=== PATIENT | female | born 1965 | race Caucasian/White ===

== ENCOUNTER 2017-07-21 16:17 | Emergency (ER) | payer MEDICAID ==
[~2017-07-21] VITALS: Ht 162.6 cm; Wt 110.8 kg
[~2017-07-21 16:17] MED LIST: ALPR1TAB2 PO; DULO20EC PO; ENAL20TA19 PO; SIMV5TAB6 PO; TIOT18CA2 IH; [UNRECOGNIZED DRUG - CODE] PO; [UNRECOGNIZED DRUG - REMARK]
[2017-07-21 16:50] VITALS: BP 152/84
--- NOTE | 2017-07-21 16:55 | NUR ---
Patient ambulated to bed 4. RN evaluating patient at bedside.
--- NOTE | 2017-07-21 16:55 | NUR ---
51 F BIB SELF WITH C/O 10/10 "SHARP" POSTERIOR NECK PAIN RADIATING TO POSTERIOR HEAD X 1 YEAR WORSING THE PAST MONTH; PT DENIES ANY RECENT TRAUMA OR FALLS; PT ALSO REPORTS NAUSEA; PT IS AOX4 WITH STEADY GAIT; RR ARE EVEN AND UNLABORED; VSS; PATIENT POSITIONED FOR COMFORT; HOB ELEVATED; BED DOWN. ER MD MADE AWARE OF PT STATUS. ALL NEEDS MET AT THIS TIME. WILL CONTINUE TO MONITOR.
--- NOTE | 2017-07-21 16:59 | NUR ---
Dr. Freed evaluating patient at bedside.
[2017-07-21] MEDS ORDERED: DIAZEPAM 5 MG TAB PO ONE (17:15)
[2017-07-21] MEDS ORDERED: KETOROLAC 30 MG/ML VIAL IM ONE (17:15)
--- NOTE | 2017-07-21 18:57 | NUR ---
Patient discharged with v/s stable. Written and verbal after care instructions given and explained. Patient alert, oriented and verbalized understanding of instructions. Ambulatory with to car. All questions addressed prior to discharge. ID band removed. Patient advised to follow up with PMD. Rx of Lidoderm 5% Transdermal Patch and Valium given. Patient educated on indication of medication including possible reaction and side effects. Opportunity to ask questions provided and answered.
[2017-07-21 18:58] VITALS: BP 120/70
== END 2017-07-21 18:57 | disposition home or self-care (01) ==
LOC: MED 16:17
DX: M62.838 Other muscle spasm (principal); J44.9 Chronic obstructive pulmonary disease, unspecified; I10 Essential (primary) hypertension; N19 Unspecified kidney failure; Z79.51 Long term (current) use of inhaled steroids
CPT/HCPCS: 72125; 96372; 99284; J1885

== ENCOUNTER 2018-09-30 11:51 | Emergency (ER) | payer MEDICAID ==
[~2018-09-30] VITALS: Ht 162.6 cm; Wt 129.3 kg
[2018-09-30 11:56] VITALS: BP 155/96
--- NOTE | 2018-09-30 12:03 | NUR ---
PT AMBULATES TO BED 8
--- NOTE | 2018-09-30 12:05 | NUR ---
BIB SELF C/O COLD SYMPTOMS FOR 2 DAYS. INCLUDING COUGH HEADACHE AND BODY ACHES. ENIES N/V/D; SKIN IS PINK/WARM/DRY; AAOX4 WITH EVEN AND STEADY GAIT; HR EVEN AND REGULAR; PT DENIES ANY FEVER, CP, OR SOB AT THIS TIME; PATIENT STATES PAIN OF 7/10 AT THIS TIME; VSS; PATIENT POSITIONED FOR COMFORT; HOB ELEVATED; BEDRAILS UP X2; BED DOWN. ER MD MADE AWARE OF PT STATUS.
[2018-09-30] MEDS ORDERED: ALBUTEROL SULFATE/IPRATROPIU 3 ML SOL IH ONE (12:25)
--- NOTE | 2018-09-30 12:30 | NUR ---
RT AT BEDSIDE.
[2018-09-30 13:45] VITALS: BP 125/85
--- NOTE | 2018-09-30 13:45 | NUR ---
Patient discharged with v/s stable. Written and verbal after care instructions given and explained. Patient alert, oriented and verbalized understanding of instructions. Ambulatory with steady gait. All questions addressed prior to discharge. ID band removed. Patient advised to follow up with PMD. Rx of PREDNISONE and ATROVENT given. Patient educated on indication of medication including possible reaction and side effects. Opportunity to ask questions provided and answered.
== END 2018-09-30 13:45 | disposition home or self-care (01) ==
LOC: MED 11:51
DX: J44.1 Chronic obstructive pulmonary disease with (acute) exacerbation (principal); I10 Essential (primary) hypertension; F41.9 Anxiety disorder, unspecified; F17.210 Nicotine dependence, cigarettes, uncomplicated; Z79.899 Other long term (current) drug therapy
CPT/HCPCS: 71045; 94640; 99283; J7620

== ENCOUNTER 2019-01-19 10:46 | Emergency (ER) | payer MEDICAID ==
[~2019-01-19] VITALS: Ht 162.6 cm; Wt 108.9 kg
[~2019-01-19 10:46] MED LIST changes: -ENAL20TA19 PO; +ENAL20TA99 PO; +SIMV5TAB56 PO; -SIMV5TAB6 PO
[2019-01-19 10:49] VITALS: BP 115/86
--- NOTE | 2019-01-19 10:55 | NUR ---
Patient ambulated to bed 5 with family. RN evaluating patient at bedside.
--- NOTE | 2019-01-19 10:55 | NUR ---
BIB SELF. AAO X4. C/O RIGHT HAND, 3RD, 4TH, 5TH FINGER NUMBNESS THIS MORNING. DENIES TRAUMA OR INJURY. CAP REFILL < 3 SECS. ABLE TO FEEL AND MOVE FINGERS. PERRLA, BRISK 4 MM. EQUAL JANIS UPPER AND LOWER EXTREMITY STRENGTH. HOB UP. ON LOW BED POSITION, LOCKED. BED SIDE RAILS UP X1. ER MADE AWARE OF PT STATUS .
--- NOTE | 2019-01-19 12:16 | NUR ---
Dr. Bass evaluating patient at bedside.
--- NOTE | 2019-01-19 12:36 | NUR ---
PT SLEEPING AT THIS TIME. EASILY AROUSABLE BY NAME. PT'S FRIEND AT BEDSIDE.
--- NOTE | 2019-01-19 12:51 | NUR ---
Dr. Bass re-evaluating patient at bedside.
[2019-01-19] MEDS ORDERED: traMADol 50 MG TAB PO ONE (13:10)
[2019-01-19] MEDS ORDERED: methylPREDNISolone SS 125 MG in WATER STERILE 2 ML IM ONE (13:10)
[2019-01-19] MEDS ORDERED: MORPHINE SULFATE 4 MG/ML SYR IM ONE (13:25)
--- NOTE | 2019-01-19 14:13 | NUR ---
Patient discharged with v/s stable. Written and verbal after care instructions given and explained. Patient alert, oriented and verbalized understanding of instructions. Ambulatory with steady gait. All questions addressed prior to discharge. ID band removed. Patient advised to follow up with PMD. Rx of Tramadol Hydrochloride given. Patient educated on indication of medication including possible reaction and side effects. Opportunity to ask questions provided and answered.
[2019-01-19 14:15] VITALS: BP 134/75
== END 2019-01-19 14:13 | disposition home or self-care (01) ==
LOC: MED 10:46
DX: M54.12 Radiculopathy, cervical region (principal); J45.909 Unspecified asthma, uncomplicated; J44.9 Chronic obstructive pulmonary disease, unspecified; I10 Essential (primary) hypertension; Z86.73 Personal history of transient ischemic attack (TIA), and cerebral infarction without residual deficits; Z79.899 Other long term (current) drug therapy
CPT/HCPCS: 96372; 99283; J2270; J2930

== ENCOUNTER 2019-10-18 11:03 | Emergency (ER) | payer MEDICAID ==
[~2019-10-18] VITALS: Ht 160 cm; Wt 116.6 kg
[2019-10-18 11:11] VITALS: BP 105/60
--- NOTE | 2019-10-18 11:22 | NUR ---
PATIENT PRESENTS TO ED WITH C/O SEVERE HEADACHE X 1 DAY AND CHRONIC BACK PAIN. DENIES N/V/D; SKIN IS PINK/WARM/DRY; AAOX4 WITH EVEN AND STEADY GAIT; LUNGS CLEAR BL; HR EVEN AND REGULAR; PT DENIES ANY FEVER, CP, SOB, OR COUGH AT THIS TIME; PATIENT STATES PAIN OF 10/10 AT THIS TIME; VSS; PATIENT POSITIONED FOR COMFORT; HOB ELEVATED; BEDRAILS UP X2; BED DOWN. ER MD MADE AWARE OF PT STATUS.
--- NOTE | 2019-10-18 11:40 | NUR ---
Patient being evaluated by physician at bedside.
[2019-10-18] MEDS ORDERED: PROCHLORPERAZINE 10 MG/2 ML VIAL IVP ONE (11:45)
[2019-10-18] MEDS ORDERED: KETOROLAC 15 MG/ML VIAL IVP ONE (11:45)
[2019-10-18] MEDS ORDERED: NACL 0.9% 1,000 ML IV ONE (11:45)
--- NOTE | 2019-10-18 12:05 | NUR ---
IV INSERTED TO LEFT HAND, 22GA WITH GOOD BLOOD RETURN, NS BOLUS STARTED, PATIENT TOLERATED WELL ON ALL THE PROCEDURE, PATIENT REFUSED TORADOL BY STATED ALLERGIC TO IT, ED MD MADE AWARE.
[2019-10-18] MEDS ORDERED: ACETAMINOPHEN EXTRA STRENGTH 500 MG TAB PO ONE (12:10)
[2019-10-18] MEDS ORDERED: diphenhydrAMINE 50 MG/ML VIAL IVP ONE (12:10)
--- NOTE | 2019-10-18 13:00 | NUR ---
IV BOLUS COMPLETED, ED MD MADE AWARE, NO ADVERSE EFFECTS AT THIS TIME, VSS, STATED FEELING BETTER.
[2019-10-18 14:05] VITALS: BP 105/60
--- NOTE | 2019-10-18 14:05 | NUR ---
Patient discharged TO HOME. Written and verbal after care instructions given and explained. Rx of MAGNESIUM, VITAMIN B2 given. Patient educated on indication of medication including possible reaction and side effects. All questions addressed prior to discharge. ID band removed. Patient advised to follow up with PMD.
== END 2019-10-18 14:05 | disposition home or self-care (01) ==
LOC: MED 11:03
DX: G43.009 Migraine without aura, not intractable, without status migrainosus (principal)
CPT/HCPCS: 81002; 81025; 87804; 96374; 96375; 99283; J0780; J1200; J7030; 99284; J1885

== ENCOUNTER 2020-12-16 08:31 | Emergency (ER) | payer MEDICAID ==
[~2020-12-16] VITALS: Ht 165.1 cm; Wt 95.3 kg
--- NOTE | 2020-12-16 08:32 | NUR ---
Patient [facility] to bed 4.
[2020-12-16 08:45] VITALS: BP 165/88
[2020-12-16] MEDS ORDERED: METOCLOPRAMIDE 10 MG/2 ML INJ VIAL IVP ONE (08:45)
[2020-12-16] MEDS ORDERED: FAMOTIDINE 20 MG/2 ML VIAL IVP ONE (08:45)
[2020-12-16] MEDS ORDERED: NACL 0.9% 1,000 ML IV ONE (08:45)
[2020-12-16] MEDS ORDERED: KETOROLAC 15 MG/ML VIAL IVP ONE (08:45)
[2020-12-16] MEDS ORDERED: diphenhydrAMINE 50 MG/ML VIAL IVP ONE (08:45)
--- NOTE | 2020-12-16 08:47 | NUR ---
55 YEAR OLD FEMALE COMPLAINS OF ABDOMINAL PAIN, NAUSEA, AND VOMITTING X 1 MONTH. PT STATES PAIN IS ON/OFF AND WHEN IT HAPPENS SHE STARTS GETTING NAUSEA. PT DENIES BLOOD IN URINE/STOOL. PT DENIES PROBLEMS WITH URINATION. PT AOX4, BREATHING EVEN AND UNLABORED, SKIN WARM AND DRY. BED IN LOWEST POSITION, LOCKED, BED RAIL UPX1. PMH - HTN, COPD, ASTHMA ALLERGIES - TORADOL, TETANUS
[2020-12-16 09:05] LABS: BASOPHILS # (AUTO) 0.1 K/uL (0.00-0.22); BASOPHILS % (AUTO) 0.8 % (0.0-2.0); EOSINOPHILS % (AUTO) 0.2 % (0.0-4.0); HEMATOCRIT 49.3 % (36-48); HEMOGLOBIN 16.8 g/dL (12.0-16.0); LYMPHOCYTES # (AUTO) 1.4 K/uL (2.5-16.5); LYMPHOCYTES % (AUTO) 13.1 % (20.5-51.1); MEAN CORPUSCULAR HEMOGLOBIN 32 pg (27-31); MEAN CORPUSCULAR HGB CONC 34 g/dL (33-37); MEAN CORPUSCULAR VOLUME 92.6 fL (80-94); MONOCYTES # (AUTO) 0.7 K/uL (0.8-1.0); MONOCYTES % (AUTO) 6.7 % (1.7-9.3); NEUTROPHILS # (AUTO) 8.7 K/uL (1.8-7.7); NEUTROPHILS % (AUTO) 79.2 % (42.2-75.2); PLATELET COUNT (AUTO) 249 K/uL (140-450); RED BLOOD CELL COUNT(AUTO) 5.33 MIL/uL (4.20-5.40)
--- NOTE | 2020-12-16 09:15 | NUR ---
PT SIGNED CONSENT FOR CT CONTRAST
[2020-12-16] MEDS ORDERED: ALUMINUM HYD/MAG/SIMETHICONE 30 ML UDC PO ONE (09:40)
[2020-12-16 10:07] LABS: ALBUMIN 3.6 g/dL (3.4-5.0); ANION GAP 18.4 (8-16); CREATININE 0.9 mg/dL (0.6-1.3); POTASSIUM 3.4 mmol/L (3.5-5.1); TOTAL BILIRUBIN 0.4 mg/dL (0.0-1.0)
--- NOTE | 2020-12-16 11:00 | NUR ---
PT STATES STILL SOME NAUSEA, ERMD MADE AWARE
[2020-12-16] MEDS ORDERED: ONDANSETRON 4 MG/2 ML VIAL IVP ONE (11:05)
[2020-12-16] MEDS ORDERED: DICYCLOMINE 10 MG CAP PO ONE (11:05)
[2020-12-16] MEDS ORDERED: ONDA4ODT2 PO (11:09)
[2020-12-16] MEDS ORDERED: MAG355OR2 PO (11:09)
[2020-12-16] MEDS ORDERED: FAMO10TA93 PO (11:09)
[2020-12-16 11:25] VITALS: BP 157/85
--- NOTE | 2020-12-16 11:25 | NUR ---
Patient discharged with v/s stable. Written and verbal after care instructions about gastritis given and explained. Patient alert, oriented and verbalized understanding of instructions. Ambulatory with steady gait. All questions addressed prior to discharge. ID band removed. Patient advised to follow up with PMD. Rx of famotidine, maalox, and zofran given. Patient educated on indication of medication including possible reaction and side effects. Opportunity to ask questions provided and answered.
--- NOTE | 2020-12-17 19:17 | NUR ---
LATE ENTRY--- 0.9% NS DISCONTINUED AT 1100
== END 2020-12-16 11:25 | disposition home or self-care (01) ==
LOC: MED 08:31
DX: K29.70 Gastritis, unspecified, without bleeding (principal); F17.210 Nicotine dependence, cigarettes, uncomplicated; J45.909 Unspecified asthma, uncomplicated; I11.9 Hypertensive heart disease without heart failure; Z86.73 Personal history of transient ischemic attack (TIA), and cerebral infarction without residual deficits; Z79.899 Other long term (current) drug therapy; Z87.448 Personal history of other diseases of urinary system
CPT/HCPCS: 36415; 74177; 80053; 83690; 85025; 96361; 96374; 96375; 99284; J1200; J1885; J2405; J2765; J3490; J7030; Q9967